=== PATIENT | female | born 1950 | race Caucasian/White ===

== ENCOUNTER → 2016-07-24 | Outpatient (CLI) | payer MEDICAID ==
[~2016-07-24] MED LIST: ADVAIR 250-501 EACH INH; BUMEX1 MG PO; COREG12.5 MG PO; DESYREL50 MG PO; KEPPRA500 MG PO; LACTINEX (FLORA1 TAB PO; LEVOTHROID(SYN75 MCG PO; LIPITOR80 MG PO; LYRICA 50MG CAP50 MG PO; MAG-OX-400(241400 MG PO; MIRALAX17 GM PO; MYCOSTATIN OINT30 GM TOP; PERCOCET 5-3251 EACH PO; PRILOSEC20 M1 PO; PRINIVIL (ZESTRI5 MG PO; PROVENTIL OR V6.7 GM INH; TYLENOL325 MG PO; ULTRAM50 MG PO; ZOLOFT50 M1 PO; ZYPREXA5 MG PO
== END | disposition disaster alternative care site (69) ==
LOC: LFPA 16:44
DX: N39.0 Urinary tract infection, site not specified (principal)